=== PATIENT | female | born 1995 | race Caucasian/White ===

== ENCOUNTER 2017-04-18 19:00 | Observation (INO) | payer OTHER ==
[2017-04-18] MEDS ORDERED: KETOROLAC TROMETHAMINE INJ/PF 30 MG/1 ML SDV IV ONE (19:20)
[2017-04-18] MEDS ORDERED: ONDANSETRON HCL INJ/PF 4 MG/2 ML SDV IV ONE (19:20)
--- NOTE | 2017-04-18 19:21 | ER Document Report ---
ED Medical Screen (RME) - General Chief Complaint: Abdominal Pain Stated Complaint: ABDOMINAL PAIN Time Seen by Provider: 04/18/17 19:10 Mode of Arrival: Ambulatory Information source: Patient TRAVEL OUTSIDE OF THE [place] IN LAST 30 DAYS: No - HPI Patient complains to provider of: Right lower quadrant abdominal pain, nausea and vomiting Onset: This afternoon Onset/Duration: Gradual Quality of pain: Achy Severity: Moderate Pain Level: 4 Associated Symptoms: Abdominal pain, Nausea, Vomiting Exacerbated by: Denies Relieved by: Denies Similar symptoms previously: No Recently seen / treated by doctor: No Notes: 04/18/17 19:20 Patient is a 21-year-old female who presents to the emergency room complaining of right lower quadrant abdominal pain with nausea and vomiting that started approximately 3 hours ago, no fever, no dysuria or hematuria - Related Data Allergies/Adverse Reactions: No Known Allergies Allergy (Verified 04/18/17 19:01) Past Medical History Renal/ Medical History: Denies: Hx Peritoneal Dialysis Physical Exam - Vital signs Vitals: Temp Pulse Resp BP Pulse Ox 98.1 F 92 H 18 111/65 99 04/18/17 19:01 04/18/17 19:01 04/18/17 19:01 04/18/17 19:01 04/18/17 19:01 Course - Vital Signs Vital signs: Temp Pulse Resp BP Pulse Ox 98.1 F 92 H 18 111/65 99 04/18/17 19:01 04/18/17 19:01 04/18/17 19:01 04/18/17 19:01 04/18/17 19:01
[2017-04-18] MEDS: NORMAL SALINE 1000 ML 1,000 ML IV PRN ×2 (19:47→23:15)
[2017-04-18 20:09] LABS: APPEARANCE,URINE CLEAR; BILIRUBIN,URINE NEGATIVE (NEGATIVE); GLUCOSE, URINE NEGATIVE (NEGATIVE); KETONES,URINE NEGATIVE (NEGATIVE); LEUKOCYTE ESTERASE,URINE NEGATIVE (NEGATIVE); NITRITE,URINE NEGATIVE (NEGATIVE); PROTEIN,URINE NEGATIVE (NEGATIVE); URINE SPECIFIC GRAVITY 1.004; UROBILINOGEN,URINE NEGATIVE mg/dL (<2.0)
--- NOTE | 2017-04-18 20:11 | ER Document Report ---
ED GI/ - General Chief Complaint: Abdominal Pain Stated Complaint: ABDOMINAL PAIN Time Seen by Provider: 04/18/17 19:10 Mode of Arrival: Ambulatory Notes: Patient is a 21-year-old female comes emergency department for chief complaint of right lower quadrant pain, symptoms started about 4 PM, pain began to increase and patient started getting nauseated, she vomited once. Patient denies current nausea, she states she had a normal bowel movement yesterday, she denies vaginal bleeding or discharge, dysuria, flank pain. She denies fever or chills. She has had no surgeries. She is not sexually active. She denies any past medical history. TRAVEL OUTSIDE OF THE [place] IN LAST 30 DAYS: No - Related Data Allergies/Adverse Reactions: No Known Allergies Allergy (Verified 04/18/17 19:01) Past Medical History - General Information source: Patient - Social History Smoking Status: Never Smoker Frequency of alcohol use: None Drug Abuse: None Lives with: Family Family History: Reviewed & Not Pertinent Patient has suicidal ideation: No Patient has homicidal ideation: No - Medical History Medical History: Negative Renal/ Medical History: Denies: Hx Peritoneal Dialysis Surgical Hx: Negative - Immunizations Immunizations up to date: Yes Hx Diphtheria, Pertussis, Tetanus Vaccination: Yes Review of Systems - Review of Systems Constitutional: No symptoms reported EENT: No symptoms reported Cardiovascular: No symptoms reported Respiratory: No symptoms reported Gastrointestinal: See HPI Genitourinary: No symptoms reported Female Genitourinary: No symptoms reported Musculoskeletal: No symptoms reported Skin: No symptoms reported Hematologic/Lymphatic: No symptoms reported Neurological/Psychological: No symptoms reported Physical Exam - Vital signs Vitals: Temp Pulse Resp BP Pulse Ox 98.1 F 92 H 18 111/65 99 04/18/17 19:01 04/18/17 19:01 04/18/17 19:01 04/18/17 19:01 04/18/17 19:01 Interpretation: Normal - General General appearance: Appears well In distress: None - She does not appear to be in any distress - HEENT Head: Normocephalic, Atraumatic Eyes: Normal Conjunctiva: Normal Extraocular movements intact: Yes Eyelashes: Normal Pupils: PERRL Nasal: Normal Mouth/Lips: Normal Mucous membranes: Normal Pharynx: Normal Neck: Normal - Respiratory Respiratory status: No respiratory distress Chest status: Nontender Breath sounds: Normal Chest palpation: Normal - Cardiovascular Rhythm: Regular. No: Tachycardia Heart sounds: Normal auscultation, S1 appreciated, S2 appreciated Murmur: No - Abdominal Inspection: Normal Distension: No distension Bowel sounds: Normal Tenderness: Tender, McBurney's point, Guarding, Rebound - There is tenderness to McBurney's point on exam, there is notable rebound tenderness to the area, abdomen has very mild tenderness in the left lower quadrant, otherwise benign. Organomegaly: No organomegaly - Back Back: Normal, Nontender. No: Tender, CVA tenderness - Extremities General upper extremity: Normal inspection, Nontender, Normal color, Normal ROM , Normal temperature General lower extremity: Normal inspection, Nontender, Normal color, Normal ROM , Normal temperature, Normal weight bearing. No: Brody's sign - Neurological Neuro grossly intact: Yes Cognition: Normal Orientation: AAOx4 [place] Coma Scale Eye Opening: Spontaneous [place] Coma Scale Verbal: Oriented Onel Coma Scale Motor: Obeys Commands [place] Coma Scale Total: 15 Speech: Normal Motor strength normal: LUE, RUE, LLE, RLE Sensory: Normal - Psychological Associated symptoms: Normal affect, Normal mood - Skin Skin Temperature: Warm Skin Moisture: Dry Skin Color: Normal Course - Re-evaluation Re-evalutation: Cytosis at 13.9 with elevation of neutrophils, no bandemia. Vital signs unremarkable. Examination is concerning for significant rebound tenderness at McBurney's point suggesting appendicitis. Urinalysis does not show hematuria, chemistry generally unremarkable. CBC also shows microcytic anemia, patient denies any knowledge of history of this in the past. CAT scan imaging concerning for possible acute appendicitis. No other abnormalities noted. Treating with Zosyn, IV fluids, patient kept n.p.o. other than the contrast. 04/18/17 22:44 Called and spoke with Surgery cushion filler, Dr. Dennis, he will evaluate the patient. Dr. Dennis is admitting the patient to the hospital for surgery this morning. - Vital Signs Vital signs: Temp Pulse Resp BP Pulse Ox 98.6 F 80 18 116/64 100 04/19/17 04:02 04/19/17 04:02 04/19/17 04:02 04/19/17 04:02 04/19/17 04:02 - Laboratory Result Diagrams: 04/18/17 20:30 04/18/17 19:40 Laboratory results interpreted by me: 04/18/17 04/18/17 19:40 20:30 WBC 13.9 H Hgb 9.8 L Hct 31.3 L MCV 73 L MCH 22.9 L MCHC 31.2 L RDW 15.6 H Seg Neutrophils % 86.1 H Lymphocytes % 6.2 L Absolute Neutrophils 11.9 H AST 48 H Total Protein 9.2 H Discharge - Discharge Clinical Impression: Right lower quadrant pain Acute appendicitis Qualifiers: Acute appendicitis type: with localized peritonitis Qualified Code(s): K35.3 - Acute appendicitis with localized peritonitis Disposition: ADMITTED INPATIENT Admitting Provider: Surgicalist Unit Admitted: Surgical Floor
[2017-04-18 20:19] LABS: ALANINE AMINOTRANSFERASE 35 U/L (5-35); ALBUMIN 5.1 g/dL (3.7-5.6); ALKALINE PHOSPHATASE 104 U/L (50-135); ANION GAP 13 (5-19); ASPARTATE AMINO TRANSFERASE 48 U/L (5-30); BILIRUBIN,DIRECT 0.4 mg/dL (0.0-0.4); BILIRUBIN,TOTAL 0.8 mg/dL (0.2-1.3); BLOOD UREA NITROGEN 12 mg/dL (7-20); CARBON DIOXIDE 26 mmol/L (22-30); CHLORIDE 100 mmol/L (98-107); CREATININE RESULT 0.75 mg/dL (0.52-1.25); GLUCOSE 83 mg/dL (75-110); LIPASE 65.8 U/L (23-300); POTASSIUM 4.1 mmol/L (3.6-5.0); SODIUM 138.7 mmol/L (137-145); TOTAL PROTEIN 9.2 g/dL (6.3-8.2)
[2017-04-18 20:50] LABS: ABSOLUTE LYMPHOCYTES (AUTO) 0.9 10^3/uL (0.5-4.7); ABSOLUTE NEUT (AUTO) 11.9 10^3/uL (1.7-8.2); BASOPHILS % (AUTO) 0.2 % (0-2); EOSINOPHILS % (AUTO) 0.2 % (0-6); HEMATOCRIT 31.3 % (36.0-47.0); HEMOGLOBIN 9.8 g/dL (12.0-15.5); HGB HCT DIFFERENCE -1.9; LYMPHOCYTES % (AUTO) 6.2 % (13-45); MEAN CORPUSCULAR HEMOGLOBIN 22.9 pg (27.0-33.4); MEAN CORPUSCULAR HGB CONC 31.2 g/dL (32.0-36.0); MEAN CORPUSCULAR VOLUME 73 fl (80-97); MONOCYTES % (AUTO) 7.3 % (3-13); RED BLOOD COUNT 4.27 10^6/uL (3.72-5.28); RED CELL DISTRIBUTION WIDTH 15.6 % (11.5-14.0); SEGMENTED NEUTROPHILS % (AUTO) 86.1 % (42-78); WHITE BLOOD COUNT 13.9 10^3/uL (4.0-10.5)
--- NOTE | 2017-04-18 22:31 | RADIOLOGY REPORT (SQ) ---
EXAM DESCRIPTION: CT ABD/PELVIS WITH IV ORAL COMPLETED DATE/TIME: 04/18/2017 10:11 pm REASON FOR STUDY: abdominal pain COMPARISON: None. TECHNIQUE: CT scan of the abdomen and pelvis performed using helical scanning technique with dynamic intravenous contrast injection and oral contrast. Images reviewed with lung, soft tissue, and bone w indows. Reconstructed coronal and sagittal MPR images reviewed. Delayed images for evaluation of the urinary system also acquired. All images stored on PACS. All CT scanners at this facility use dose modulation, iterative reconstruction, and/or weight based d osing when appropriate to reduce radiation dose to as low as reasonably achievable (ALARA). [facility]: Dose Right [facility]: CareDose [facility]: Dose Right [facility]: Teradose 4D [facility]: The Auto [employer]ault CONTRAST TYPE AND DOSE: 75mL Isovue 370 RENAL FUNCTION: Creatinine 0.75 RADIATION DOSE: 15.77mGy. LIMITATIONS: None. FINDINGS: LOWER CHEST: No significant findings. No nodules or infiltrates. LIVER: Normal size. No masses or dilated ducts. SPLEEN: Normal size. No focal lesions. PANCREAS: No masses. No significant calcifications. No adjacent inflammation or peripancreatic fluid collections. Pancreatic duct not dilated. GALLBLADDER: No identified stones by CT criteria. No inflammatory changes to suggest cholecystitis. ADRENAL GLANDS: No significant masses or asymmetry. RIGHT KIDNEY AND URETER: No solid masses. No significant calcifications. No hydronephrosis or hyd roureter. LEFT KIDNEY AND URETER: No solid masses. No significant calcifications. No hydronephrosis or hydr oureter. AORTA AND VESSELS: No aneurysm. No dissection. Renal arteries, SMA, celiac without stenosis. RETROPERITONEUM: No retroperitoneal adenopathy, hemorrhage or masses. BOWEL AND PERITONEAL CAVITY: No masses or inflammatory changes. No free fluid or peritoneal masses. APPENDIX: A distended fluid filled appendix is identified extending into the pelvis measuring 12 mm i n diameter. The possibility of appendicitis should be considered. PELVIS: No mass or free fluid. Normal bladder. 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 ABDOMINAL WALL: No masses. No hernias. BONES: No significant or acute findings. OTHER: No other significant finding. IMPRESSION: A distended fluid-filled appendix is identified extending into the pelvis as noted above . The possibility of appendicitis should be considered. Other findings as noted above TECHNICAL DOCUMENTATION: JOB ID: [id number] Quality ID # [id number]: Final reports with documentation of one or more dose reduction techniques (e.g., Au tomated exposure control, adjustment of the mA and/or kV according to patient size, use of iterative reconstruction technique) 2010 [employer]- All Rights Reserved
[2017-04-18] MEDS ORDERED: PIPERACILLIN/TAZOBACTAM 3.375 GM VIAL IV ONE (22:41)
[2017-04-18] MEDS ORDERED: NORMAL SALINE 1000 ML 1,000 ML IV PRN ×3 (22:44→23:31)
--- NOTE | 2017-04-18 23:27 | PDOC H&P ---
History of Present Illness Admission Date/PCP: 04/18/17 23:16 Patient complains of: Acute onset abdominal pain earlier today History of Present Illness: AMITA WATSON is a 21 year old female who [place] with [place], originally from [facility], he developed acute onset abdominal pain periumbilical then migrated to the right lower quadrant associated with nausea and one episode of vomiting and anorexia. Last bowel movement was 2 days ago, normal for her as she is chronically constipated. Patient denies history of gastrointestinal problems, trauma, or being associated with anybody sick. He was evaluated in the emergency department found to have localized right lower quadrant tenderness, mild leukocytosis and CT scan findings consistent with early appendicitis. Surgery was consulted she was advised admission for definitive management Past Medical History Cardiac Medical History: Reports: None Pulmonary Medical History: Reports: None EENT Medical History: Reports: None Traumatic Medical History: Reports: None Hematology: Reports: None Infectious Medical History: Reports: None Past Surgical History Past Surgical History: Reports: None Social History Information Source: Patient Smoking Status: Never Smoker Frequency of Alcohol Use: None Hx Recreational Drug Use: No Drugs: None Family History Family History: Other - Anemia and constipation and father Parental Family History Reviewed: Yes Children Family History Reviewed: Yes Sibling(s) Family History Reviewed.: Yes Medication/Allergy Allergies/Adverse Reactions: No Known Allergies Allergy (Verified 04/18/17 19:01) Review of Systems Constitutional: ABSENT: chills, fever(s), headache(s), weight gain, weight loss Eyes: ABSENT: visual disturbances Ears: ABSENT: hearing changes Cardiovascular: ABSENT: chest pain, dyspnea on exertion, edema, orthropnea, palpitations Respiratory: ABSENT: cough, hemoptysis Gastrointestinal: PRESENT: other - Patient has a long history of chronic constipation, never evaluated. Genitourinary: ABSENT: dysuria, hematuria Musculoskeletal: ABSENT: joint swelling Integumentary: ABSENT: rash, wounds Endocrine: ABSENT: cold intolerance, heat intolerance, polydipsia, polyuria Physical Exam Vital Signs: Temp Pulse Resp BP Pulse Ox 99.0 F 77 16 113/55 L 98 04/18/17 22:43 04/18/17 22:43 04/18/17 22:43 04/18/17 22:43 04/18/17 22:43 General appearance: PRESENT: no acute distress Head exam: PRESENT: atraumatic Eye exam: PRESENT: EOMI Ear exam: PRESENT: normal external ear exam Mouth exam: PRESENT: dry mucosa Neck exam: PRESENT: full ROM Respiratory exam: PRESENT: clear to auscultation tami Cardiovascular exam: PRESENT: RRR Pulses: PRESENT: +1 pedal pulses bilateral, +2 pedal pulses bilateral GI/Abdominal exam: PRESENT: other - Soft flat minimally tender right lower quadrant hypoactive bowel sounds. Rectal exam: PRESENT: deferred Extremities exam: PRESENT: full ROM Musculoskeletal exam: PRESENT: full ROM Neurological exam: PRESENT: alert, awake, oriented to person, oriented to place Psychiatric exam: PRESENT: appropriate affect Skin exam: PRESENT: other - Mild sunburn Results Impressions: Abdomen/Pelvis CT 04/18/17 19:19 IMPRESSION: A distended fluid-filled appendix is identified extending into the pelvis as noted above. The possibility of appendicitis should be considered. Other findings as noted above Status: Image reviewed by me - I have reviewed the CT scan of the abdomen and pelvis. There is copious amount of stool in the colon but no obstruction. The appendix is medially directed fluid-filled and thickened. No evidence of free air or fluid in the pelvis etc. Assessment & Plan - Diagnosis (1) Acute appendicitis Qualifiers: Acute appendicitis type: with localized peritonitis Qualified Code(s): K35.3 - Acute appendicitis with localized peritonitis Is this a current diagnosis for this admission?: YesPlan: 1. Patient's clinical history physical examination laboratory profile and CT scan findings are all consistent with early acute appendicitis. 2. We will admit the patient to the surgical service keep n.p.o. on IV fluids and plan for interval laparoscopic, possible open appendectomy in the a.m. I explained the mechanics of the operation to the patient and her parents. Expected outcome and length of stay also reviewed. I believe the emergency and agreed to proceed. (2) Microcytic anemia Is this a current diagnosis for this admission?: YesPlan: Patient father has a history of unexplained iron deficiency anemia. Patient may need anemia workup as an outpatient in the future (3) Constipation Qualifiers: Constipation type: chronic idiopathic constipation Qualified Code(s) : K59.04 - Chronic idiopathic constipation Is this a current diagnosis for this admission?: YesPlan: This is a chronic problem. This can be managed with fiber again on an outpatient basis. - Time Time Spent: 50 to 70 Minutes Critical Time spent with patient: 15-24 minutes Medications reviewed and adjusted accordingly: Yes Anticipated discharge: Home - Inpatient Certification Based on my medical assessment, after consideration of the patient's comorbidities, presenting symptoms, or acuity I expect that the services needed warrant INPATIENT care.: Yes I certify that my determination is in accordance with my understanding of Medicare's requirements for reasonable and necessary INPATIENT services [42 CFR 412.3e].: Yes Medical Necessity: Need For IV Fluids, Need for Pain Control, Need for IV Antibiotics, Need for Surgery
[2017-04-19] MEDS ORDERED: MORPHINE SULFATE 10 MG/ML INJ ONE (03:15)
[2017-04-19] MEDS ORDERED: MORPHINE SULFATE 10 MG/ML INJ IV PRN ×3 (03:16→08:35)
[2017-04-19] MEDS ORDERED: KETOROLAC TROMETHAMINE INJ/PF 30 MG/1 ML SDV ONE (03:28)
[2017-04-19] MEDS ORDERED: KETOROLAC TROMETHAMINE INJ/PF 30 MG/1 ML SDV IV ONE (03:45)
[2017-04-19] MEDS ORDERED: HYDROMORPHONE HCL INJ/PF 2 MG/ML AMPULE ONE (06:56)
[2017-04-19] MEDS ORDERED: MIDAZOLAM 2 MG/2 ML INJ ONE (06:56)
[2017-04-19] MEDS ORDERED: FENTANYL CITRATE INJ/PF 100 MCG/2 ML AMPUL ONE (06:56)
[2017-04-19] MEDS ORDERED: PROPOFOL INJ 200 MG/20 ML VIAL IV ONE (06:57)
[2017-04-19] MEDS ORDERED: ACETAMINOPHEN 100 ML IV ONE (06:57)
[2017-04-19] MEDS ORDERED: PIPERACILLIN SODIUM/TAZOBACTAM 3.375 GM in NORMAL SALINE 100 ML IV SCH ×2 (07:00→14:00)
[2017-04-19] MEDS ORDERED: PIPERACILLIN/TAZOBACTAM 3.375 GM VIAL IV PRN (07:00)
[2017-04-19] MEDS ORDERED: PIPERACILLIN/TAZOBACTAM 3.375 GM VIAL IV ONE (07:24)
[2017-04-19] MEDS ORDERED: BUPIVACAINE HCL 0.25 % INJ/PF (2.5 MG/1 ML) 30 ML VIAL INJ ONE (07:45)
[2017-04-19] MEDS ORDERED: MEPERIDINE HCL/PF INJ 25 MG/1 ML DISP.SYRIN IV PRN (08:09)
[2017-04-19] MEDS ORDERED: DIPHENHYDRAMINE HCL 50 MG/ML VIAL IV PRN (08:09)
[2017-04-19] MEDS ORDERED: PROMETHAZINE HCL INJ 25 MG/1 ML VIAL IV PRN (08:09)
[2017-04-19] MEDS ORDERED: FENTANYL CITRATE INJ/PF 100 MCG/2 ML AMPUL IV PRN ×3 (08:09)
[2017-04-19] MEDS ORDERED: ONDANSETRON HCL INJ/PF 4 MG/2 ML SDV IV PRN (08:35)
--- NOTE | 2017-04-19 08:35 | Operative Report ---
Operative Report DATE OF SURGERY: 04/19/17 PREOPERATIVE DIAGNOSIS: Acute appendicitis POSTOPERATIVE DIAGNOSIS: Acute appendicitis OPERATION: Laparoscopic appendectomy SURGEON: JAGRUTI MIKE ANESTHESIA: GA TISSUE REMOVED OR ALTERED: 1 appendix COMPLICATIONS: No complications ESTIMATED BLOOD LOSS: 10 cc INTRAOPERATIVE FINDINGS: See below PROCEDURE: The patient was seen in the preop holding area where she was then taken to the main operating room and general anesthesia was induced. Of note she voided prior to undergoing general anesthesia. The arms were abducted, abdomen prepped and draped in sterile fashion and instrumentation and imaging set up for laparoscopic appendectomy Surgical plan and surgical timeout was conducted Markings were made on the skin for 3 incisions one above the umbilicus and above the pubic area or in the left lower quadrant. Skin was anesthetized with 1% lidocaine without epinephrine. A small vertical incision was made over the umbilicus, Veress needle inserted peritoneal cavity and pneumoperitoneum was established uneventfully. A Veress needle was removed and a 5 mm port was inserted and a 5 mm flexible scope was inserted. Under direct visualization 2 additional ports were placed one in the suprapubic position, 5 mm, 12 mm port in left lower quadrant. There was no evidence of visceral or vascular injury upon entry. Findings were significant for an acutely inflamed appendix with dilation but no separation, no perforation. The appendix was grasped at the midpoint, and the adhesions between the appendix, terminal ileum, and pelvic sidewall were taken down bluntly. Of note the proximal portion of appendix was erythematous not particularly dilated. I believed that it was suitable for transection at its base. Graspers were used to open up the mesoappendix at the confluence of the appendix and the cecum. A single firing of the Ethicon blue load 45 mm stapler was used to amputate the appendix at its base. A second firing of stapler was used to take down the mesoappendix. Specimen was placed in the Endobag and brought up the patient in the left lower quadrant port site incision uneventfully with the specimen being sent to pathology for permanent analysis We replaced the 12 mm port, check for bleeding and there were 2 sites of bleeding along the staple line on the cecum which required the application of 2 small clips. Bleeding was now controlled. We irrigated the peritoneal cavity out of any residual blood. We did inspect the deep pelvis, visualizing the uterus, right tube and ovary, left tube and ovary all of which were normal. Photos were taken of these organs. We returned to the operative field check for bleeding there was none. Ridott the operation was complete. Sponge and needle counts are correct. All ports removed under direct visualization pneumoperitoneum evacuated, and wounds closed with 0 Vicryl 3-0 Vicryl benzoin and Steri-Strips. Patient was extubated and taken to recovery in stable condition.
[2017-04-19] MEDS ORDERED: DOCUSATE SODIUM 100 MG CAPSULE PO PRN (08:36)
[2017-04-19] MEDS ORDERED: OXYCODONE-ACETAMINOPHEN 5-325 MG TABLET PO PRN (08:36)
[2017-04-19] MEDS ORDERED: ROCURONIUM BROMIDE INJ 50 MG/5 ML VIAL IV ONE (10:38)
[2017-04-19] MEDS ORDERED: NEOSTIGMINE METHYLSULFATE 10 MG/10 ML VIAL ONE (10:38)
[2017-04-19] MEDS ORDERED: LIDOCAINE 2% INJ-PF (20 MG/ML) 10 ML AMPUL ONE (10:38)
[2017-04-19] MEDS ORDERED: GLYCOPYRROLATE INJ 0.4 MG/2 ML VIAL ONE (10:38)
[2017-04-19] MEDS ORDERED: SUCCINYLCHOLINE CHLORIDE INJ 200 MG/10 ML VIAL ONE (10:38)
[2017-04-19] MEDS ORDERED: ONDANSETRON HCL INJ/PF 4 MG/2 ML SDV ONE (10:38)
[2017-04-19] MEDS ORDERED: DEXAMETHASONE SOD PHOSPHATE INJ 4 MG/1 ML VIAL ONE (10:38)
[2017-04-19 13:40] VITALS: BP 103/56
--- NOTE | 2017-04-19 19:53 | DISCHARGE SUMMARY E ---
Discharge Summary NAME: AMITA WATSON : 1995 AGE: 21Y ADMITTED: 04/18/2017 DISCHARGED: 04/19/2017 SUMMARY OF HOSPITALIZATION: The patient is a 21-year-old white female who presented to the Emergency Department complaining of acute onset of abdominal pain. She was evaluated by CT scan and found to have evidence of acute appendicitis. The patient was admitted to the surgical service and kept n.p.o. on IV fluids and intravenous antibiotics. Within approximately 7 hours, she was taken to the operating room where she underwent laparoscopic appendectomy. She was found to have an acutely inflamed appendix without rupture or phlegmon. She tolerated the operation well and had no postoperative complications and was started on a diet; this was slowly advanced and tolerated well. By the afternoon of day of surgery, she was felt to have received maximum benefit from hospitalization and was discharged home. FINAL DIAGNOSIS: Acute appendicitis status post laparoscopic appendectomy by Dr. Dennis. DISPOSITION: The patient will be discharged home in the care of her parents who will be staying in the area as they are vacationing from [place]. They will call our office in 48 hours to make an appointment to see Dr. Dennis or a colleague in [facility] in approximately 5 days. DICTATING PHYSICIAN: JAGRUTI DENNIS M.D. [id number] PHY#: [id number] ID: [id number] JOB#: [id number] ACCT: [id number] cc:Elsa CASTILLO MD, M.D. IVAN FRIANT, PA >
== END 2017-04-19 15:06 | disposition home or self-care (01) ==
LOC: ER 19:00 → INTOOBSV 23:16 → EH 23:16 → UNDOADMOB 23:16 → EH 23:17 → 4S 04-19 01:43 → EH 04-19 01:43 → 4S 04-19 01:43
PROC: 0DTJ4ZZ Resection of Appendix, Percutaneous Endoscopic Approach (ICD-10-PCS; principal; 2017-04-19 07:30)
DX: K35.3 Acute appendicitis with localized peritonitis (principal); K38.8 Other specified diseases of appendix; K66.0 Peritoneal adhesions (postprocedural) (postinfection); K59.04 Chronic idiopathic constipation; D50.9 Iron deficiency anemia, unspecified; Z83.79 Family history of other diseases of the digestive system; Z83.2 Family history of diseases of the blood and blood-forming organs and certain disorders involving the immune mechanism
CPT/HCPCS: 44970; 99285; 36415; 87086; 83690; 85025; 81025; 87088; 80053; 81001; 87186; 88304 ×2; 74177; J2250; J3490 ×2; J1100; J3010; J1885 ×2; J2270; J1170; J0330; J2405 ×2; J7030; J2704; J2543 ×2; J0131; 840